=== PATIENT | male | born 1995 | race Hispanic/Latino ===

== ENCOUNTER 2020-12-13 19:09 | Emergency (ER) | payer SELFPAY ==
[~2020-12-13] VITALS: Ht 172.7 cm; Wt 81.6 kg
== END 2020-12-13 19:55 | disposition home or self-care (01) ==
LOC: ER 19:36
DX: S16.1XXA Strain of muscle, fascia and tendon at neck level, initial encounter (principal); R62.50 Unspecified lack of expected normal physiological development in childhood
CPT/HCPCS: 99282